=== PATIENT | male | born 1965 | race African-American/Black ===

== ENCOUNTER 2019-05-20 11:48 | Emergency (ER) | payer OTHER ==
[2019-05-20 12:04] VITALS: BP 115/82; PULSE 84; TEMP 98.6; BMI 23.7
[2019-05-20] MEDS ORDERED: KETOROLAC TROMETHAMINE 60 MG/2 ML VIAL IM ONE (12:15)
--- NOTE | 2019-05-20 12:21 | PDOC ---
History of Present Illness - General Chief Complaint: Back Pain Stated Complaint: BACK PAIN Time Seen by Provider: 05/20/19 12:06 History Source: Patient - History of Present Illness Initial Comments: 05/20/19 12:15 54-year-old male complaining of lower back pain bilaterally after doing a stretch this morning. Patient reports that he was stretching to touch his toes and felt intense pain. Denies pain radiating down legs or numbness or tingling to the lower extremity. No incontinence of bowel or urine. Past History - Past Medical History Allergies/Adverse Reactions: Allergies Allergy/AdvReac Type Severity Reaction Status Date / Time No Known Allergies Allergy Verified 05/20/19 12:01 Home Medications: Ambulatory Orders Albuterol Sulfate Inhaler - [Ventolin HFA Inhaler -] 2 inh IH Q4H PRN #1 inh Benzonatate [Tessalon Perle] 100 mg PO TID PRN #30 capsule 11/19/13 No Home Medications 0 dose .ROUTE UTDICT 11/19/13 Cyclobenzaprine HCl [Flexeril -] 10 mg PO TID PRN #21 tablet 05/20/19 Ibuprofen 600 mg PO QID PRN #30 tablet 05/20/19 COPD: No - Suicide/Smoking/Psychosocial Hx Smoking Status: No Smoking History: Never smoked Have you smoked in the past 12 months: No Number of Cigarettes Smoked Daily: 0 Information on smoking cessation initiated: No Hx Alcohol Use: No Drug/Substance Use Hx: No Substance Use Type: None Review of Systems - Review of Systems Able to Perform ROS?: Yes Is the patient limited Monegasque proficient: No Constitutional: No: Symptoms Reported, See HPI, Chills, Diaphoresis, Fever, Loss of Appetite, Malaise, Night Sweats, Weakness, Weight Stable, Unintentional Wgt. Loss, Unexplained wgt Loss, Other Musculoskeletal: Yes: Back Pain. No: Symptoms Reported, See HPI, Gout, Joint Pain, Joint Swelling, Muscle Pain, Muscle Weakness, Neck Pain, Joint Stiffness, Other *Physical Exam - Vital Signs Last Vital Signs Temp Pulse Resp BP Pulse Ox 98.6 F 84 18 115/82 98 05/20/19 12:01 05/20/19 12:01 05/20/19 12:01 05/20/19 12:01 05/20/19 12:01 - Physical Exam General Appearance: Yes: Appropriately Dressed Musculoskeletal: positive: Decreased Range of Motion, Muscle Spasm, Vertebral Tenderness (lumbar area minimal tenderness, has tenderness b/l ) Extremity: positive: Normal Capillary Refill, Normal Inspection, Normal Range of Motion Integumentary: positive: Normal Color, Dry, Warm Neurologic: positive: Fully Oriented, Alert Progress Note - Progress Note Progress Note: A: back pain P: nsaids Muscle relaxant *DC/Admit/Observation/Transfer Diagnosis at time of Disposition: Back pain at L4-L5 level - Discharge Dispostion Disposition: HOME - Prescriptions Prescriptions: Cyclobenzaprine HCl [Flexeril -] 10 mg PO TID PRN #21 tablet PRN Reason: Muscle Spasms Ibuprofen 600 mg PO QID PRN #30 tablet PRN Reason: Back Pain - Referrals Referrals: Shahab Eldridge MD [Staff Physician] - - Patient Instructions Printed Discharge Instructions: Low Back Pain Additional Instructions: Apply ice to the area for the first 24 hours. Then alternate with ice and heat after. Take ibuprofen every 6 hours as needed for pain. Take Flexeril as prescribed for muscle spasm. Flexeril can make you sleepy, do not drive or operate heavy machinery after taking the medication. Follow-up with an orthopedic doctor if symptoms persist. A referral was given to you today. Return to the emergency room for any worsening symptoms. - Post Discharge Activity Forms/Work/School Notes: Back to Work
[2019-05-20] MEDS ORDERED: KETOROLAC TROMETHAMINE 60 MG/2 ML VIAL ONE (12:31)
== END 2019-05-20 12:45 | disposition home or self-care (01) ==
LOC: JERFT 11:48
PROC: 3E0233Z Introduction of Anti-inflammatory into Muscle, Percutaneous Approach (ICD-10-PCS; principal; 2019-05-20)
DX: M54.5 Low back pain (principal); X50.1XXA Overexertion from prolonged static or awkward postures, initial encounter; Y93.89 Activity, other specified; Y92.038 Other place in apartment as the place of occurrence of the external cause; Y99.8 Other external cause status
CPT/HCPCS: 99281-25

== ENCOUNTER 2022-10-03 10:56 | Emergency (ER) | payer OTHER ==
[2022-10-03 11:22] VITALS: BP 163/87; PULSE 72; RESP 18; TEMP 98.2; BMI 23.7
== END 2022-10-03 12:51 | disposition home or self-care (01) ==
LOC: JERFT 10:56
DX: L29.9 Pruritus, unspecified (principal)
CPT/HCPCS: 99282-25